=== PATIENT | female | born 1975 | race Two or more races ===

== ENCOUNTER 2018-10-15 11:54 | Emergency (ER) | payer SELFPAY ==
[~2018-10-15] VITALS: Ht 154.9 cm; Wt 52.6 kg
[2018-10-15 12:04] VITALS: BP 114/51
== END 2018-10-15 14:24 | disposition home or self-care (01) ==
LOC: ER 12:01
DX: N39.0 Urinary tract infection, site not specified (principal); N76.0 Acute vaginitis